=== PATIENT | male | born 1955 ===

== ENCOUNTER 2020-04-04 04:39 | Emergency (ER) | payer SELFPAY ==
[2020-04-04] MEDS ORDERED: Oxymetazoline 0.05% Nasal Spray 15 ML Bottle NAS ONE (04:49)
--- NOTE | 2020-04-04 04:52 | EDM.PDOC ---
ED HPI GENERAL MEDICAL PROBLEM - General Chief Complaint: ENT Problem Stated Complaint: NOSE BLEED Time Seen by Provider: 04/04/20 04:45 Source of Information: Reports: Patient History Limitations: Reports: No Limitations - History of Present Illness INITIAL COMMENTS - FREE TEXT/NARRATIVE: Patient is a 64-year-old male who presents today for nosebleed. Patient states that whenever he takes hollowed out and ears dry his nose typically bleeds. Patient denies any picking of his nose. Patient does not take any anticoagulation. Patient also reports that he has high blood pressure but not taken his medication in a few years. Denies any chest pain - Related Data Allergies Allergy/AdvReac Type Severity Reaction Status Date / Time No Known Allergies Allergy Verified 04/04/20 04:45 Home Meds: Home Meds Apixaban [Eliquis] 5 mg PO BID 30 Days #60 tablet 04/04/20 [Rx] dilTIAZem HCL [Dilt-XR] 120 mg PO DAILY 1 Days #30 cap.er.deg 04/04/20 [Rx] ED ROS ENT - Review of Systems Review Of Systems: Comprehensive ROS is negative, except as noted in HPI. Constitutional: Reports: No Symptoms HEENT: Reports: Nosebleed Respiratory: Reports: No Symptoms Endocrine: Reports: No Symptoms GI/Abdominal: Reports: No Symptoms : Reports: No Symptoms Musculoskeletal: Reports: No Symptoms Skin: Reports: No Symptoms Neurological: Reports: No Symptoms Psychiatric: Reports: No Symptoms Hematologic/Lymphatic: Reports: No Symptoms Immunologic: Reports: No Symptoms ED EXAM, ENT - Physical Exam Exam: See Below Exam Limited By: No Limitations General Appearance: Alert, No Apparent Distress Ears: Normal External Exam Nose: Normal Inspection Mouth/Throat: Normal Inspection Neck: Normal Inspection Respiratory/Chest: No Respiratory Distress, Lungs Clear Cardiovascular: Regular Rate, Rhythm GI/Abdominal: Normal Bowel Sounds, Soft, Non-Tender Neurological: Alert, Oriented #1 Interpretation EKG Date: 04/04/20 Time: 04:55 Rhythm: A-Fib Rate (Beats/Min): 155 ST-T: Normal #2 Interpretation EKG Date: 04/04/20 Time: 06:50 Rhythm: A-Fib Rate (Beats/Min): 91 ST-T: Normal Course - Vital Signs Last Recorded V/S: Last Vital Signs Temp 96.9 F 04/04/20 04:40 Pulse 85 11/11/20 06:51 Resp 19 04/04/20 06:51 BP 171/114 H 04/04/20 06:51 Pulse Ox 96 04/04/20 06:51 - Orders/Labs/Meds Orders: Active Orders 24 hr Category Date Time Status EKG 12 Lead [EKG Documentation Completion] [RC] STAT Care 04/04/20 05:25 Active Labs: Laboratory Tests 04/04/20 04/04/20 04/04/20 Range/Units 05:08 05:08 05:08 WBC 7.30 (4.0-11.0) K/uL RBC 4.85 (4.50-5.90) M/uL Hgb 15.4 (13.0-17.0) g/dL Hct 46.9 (38.0-50.0) % MCV 96.7 (80.0-98.0) fL MCH 31.8 (27.0-32.0) pg MCHC 32.8 (31.0-37.0) g/dL RDW Std Deviation 51.3 (28.0-62.0) fl RDW Coeff of Megha 14 (11.0-15.0) % Plt Count 200 (150-400) K/uL MPV 10.70 (7.40-12.00) fL Neut % (Auto) 73.4 (48.0-80.0) % Lymph % (Auto) 13.0 L (16.0-40.0) % [place] % (Auto) 11.2 (0.0-15.0) % Eos % (Auto) 1.9 (0.0-7.0) % Baso % (Auto) 0.5 (0.0-1.5) % Neut # (Auto) 5.4 (1.4-5.7) K/uL Lymph # (Auto) 1.0 (0.6-2.4) K/uL [place] # (Auto) 0.8 (0.0-0.8) K/uL Eos # (Auto) 0.1 (0.0-0.7) K/uL Baso # (Auto) 0.0 (0.0-0.1) K/uL Nucleated RBC % 0.0 /100WBC Nucleated RBCs # 0 K/uL INR 1.17 APTT 27.6 (18.6-31.3) SEC Sodium 140 (136-148) mmol/L Potassium 3.7 (3.5-5.1) mmol/L Chloride 103 (98-107) mmol/L Carbon Dioxide 28.0 (21.0-32.0) mmol/L BUN 13 (7.0-18.0) mg/dL Creatinine 0.9 (0.8-1.3) mg/dL Est Cr Clr Drug Dosing 92.21 mL/min Estimated GFR (MDRD) > 60.0 ml/min Glucose 120 H (74-106) mg/dL Calcium 8.6 (8.5-10.1) mg/dL Troponin I (0.000-0.056) ng/mL Ethyl Alcohol mg/dL 04/04/20 Range/Units 05:08 WBC (4.0-11.0) K/uL RBC (4.50-5.90) M/uL Hgb (13.0-17.0) g/dL Hct (38.0-50.0) % MCV (80.0-98.0) fL MCH (27.0-32.0) pg MCHC (31.0-37.0) g/dL RDW Std Deviation (28.0-62.0) fl RDW Coeff of Megha (11.0-15.0) % Plt Count (150-400) K/uL MPV (7.40-12.00) fL Neut % (Auto) (48.0-80.0) % Lymph % (Auto) (16.0-40.0) % [place] % (Auto) (0.0-15.0) % Eos % (Auto) (0.0-7.0) % Baso % (Auto) (0.0-1.5) % Neut # (Auto) (1.4-5.7) K/uL Lymph # (Auto) (0.6-2.4) K/uL [place] # (Auto) (0.0-0.8) K/uL Eos # (Auto) (0.0-0.7) K/uL Baso # (Auto) (0.0-0.1) K/uL Nucleated RBC % /100WBC Nucleated RBCs # K/uL INR APTT (18.6-31.3) SEC Sodium (136-148) mmol/L Potassium (3.5-5.1) mmol/L Chloride (98-107) mmol/L Carbon Dioxide (21.0-32.0) mmol/L BUN (7.0-18.0) mg/dL Creatinine (0.8-1.3) mg/dL Est Cr Clr Drug Dosing mL/min Estimated GFR (MDRD) ml/min Glucose (74-106) mg/dL Calcium (8.5-10.1) mg/dL Troponin I < 0.050 (0.000-0.056) ng/mL Ethyl Alcohol 3 mg/dL Meds: Medications Discontinued Medications Generic Name Dose Route Start Last Admin Trade Name Freq PRN Reason Stop Dose Admin Apixaban 5 mg 04/04/20 06:46 04/04/20 06:54 Eliquis PO 04/04/20 06:47 5 mg ONETIME ONE Administration Aspirin 325 mg 04/04/20 06:45 Aspirin PO DAILY MENG Chlordiazepoxide HCl 50 mg 04/04/20 05:36 04/04/20 05:53 Librium PO 04/04/20 05:37 50 mg ONETIME ONE Administration Diltiazem HCl 20 mg 04/04/20 05:29 04/04/20 05:55 Diltiazem IVPUSH 04/04/20 05:30 Not Given ONETIME ONE Diltiazem HCl 60 mg 04/04/20 05:30 04/04/20 05:55 Cardizem Cd PO 04/04/20 05:31 Not Given ONETIME ONE Diltiazem HCl 20 mg 04/04/20 06:14 04/04/20 06:25 Diltiazem IVPUSH 04/04/20 06:15 20 mg ONETIME ONE Administration Diltiazem HCl 60 mg 04/04/20 06:14 04/04/20 06:28 Cardizem Cd PO 04/04/20 06:15 Not Given ONETIME ONE Diltiazem HCl 60 mg 04/04/20 06:28 04/04/20 06:29 Cardizem PO 04/04/20 06:29 60 mg ONETIME ONE Administration Sodium Chloride 1,000 mls @ 999 mls/hr 04/04/20 05:36 04/04/20 05:52 Normal Saline IV 04/04/20 06:36 999 mls/hr .BOLUS ONE Administration Lorazepam 2 mg 04/04/20 05:37 04/04/20 05:53 Ativan IVPUSH 04/04/20 05:38 2 mg ONETIME ONE Administration Oxymetazoline HCl 1 ml 04/04/20 04:49 04/04/20 05:20 Afrin Original 0.05% Nasal Duncan ROZ 04/04/20 04:50 1 spray ONETIME ONE Administration Departure - Departure Time of Disposition: 06:39 Disposition: Home, Self-Care 01 Clinical Impression: Epistaxis, Acute anterior epistaxis - Discharge Information *PRESCRIPTION DRUG MONITORING PROGRAM REVIEWED*: Not Applicable *COPY OF PRESCRIPTION DRUG MONITORING REPORT IN PATIENT IGOR: Not Applicable Prescriptions: dilTIAZem HCL [Dilt-XR] 120 mg PO DAILY 1 Days #30 cap.er.deg Apixaban [Eliquis] 5 mg PO BID 30 Days #60 tablet Instructions: Atrial Fibrillation, [id number] Referrals: PCP,None [Primary Care Provider] - Forms: ED Department Discharge Additional Instructions: The following information is given to patients seen in the emergency department who are being discharged to home. This information is to outline your options for follow-up care. We provide all patients seen in our emergency department with a follow-up referral. The need for follow-up, as well as the timing and circumstances, are variable depending upon the specifics of your emergency department visit. If you don't have a primary care physician on staff, we will provide you with a referral. We always advise you to contact your personal physician following an emergency department visit to inform them of the circumstance of the visit and for follow-up with them and/or the need for any referrals to a consulting specialist. The emergency department will also refer you to a specialist when appropriate. This referral assures that you have the opportunity for follow-up care with a specialist. All of these measure are taken in an effort to provide you with optimal care, which includes your follow-up. Under all circumstances we always encourage you to contact your private physician who remains a resource for coordinating your care. When calling for follow-up care, please make the office aware that this follow-up is from your recent emergency room visit. If for any reason you are refused follow-up, please contact the [facility] Emergency Department at and asked to speak to the emergency department charge nurse. Cardiac Rehabilitation at [address] [address] You have atrial fibrillation is an arrhythmia of your heart. We are going to start you on a blood thinner called Eliquis that she will take twice a day. If you have any blood in your stool or urine or increased bleeding from anywhere else please stop the medication and return to the ER. We also started you on a medication for your heart called diltiazem please take this patient patient daily as well 1 time a day. Please follow-up with cardiology this week will call you for appointment please try to go to the order schedule clerk tomorrow for further work-up of your heart. Critical Care Note - Critical Care Note Comments: Critical Care Procedure Note Authorized and Performed by: Dr. Singer Total critical care time: Approximately Due to a high probability of clinically significant, life threatening deterioration, the patient required my highest level of preparedness to intervene emergently and I personally spent this critical care time directly and personally managing the patient. This critical care time included obtaining a history; examining the patient; pulse oximetry; ordering and review of studies; arranging urgent treatment with development of a management plan; evaluation of patient's response to treatment; frequent reassessment; and, discussions with other providers. This critical care time was performed to assess and manage the high probability of imminent, life-threatening deterioration that could result in multi-organ failure. It was exclusive of separately billable procedures and treating other patients and teaching time. Sepsis Event Note (ED) - Evaluation Sepsis Screening Result: No Definite Risk - Focused Exam Vital Signs: Vital Signs Temp Pulse Resp BP Pulse Ox 04/04/20 06:51 85 19 171/114 H 96 04/04/20 06:24 131 H 22 H 168/118 H 95 04/04/20 05:44 128 H 22 H 180/119 H 94 L 04/04/20 04:40 96.9 F 156 H 18 199/138 H 98 - My Orders Last 24 Hours: My Active Orders 04/04/20 05:25 EKG 12 Lead [EKG Documentation Completion] [RC] STAT - Assessment/Plan Last 24 Hours: My Active Orders 04/04/20 05:25 EKG 12 Lead [EKG Documentation Completion] [RC] STAT Plan: Patient is a 64-year-old male who presents today for nosebleed. Noted to be hypertensive and also tachycardic to the 140s. Patient EKG shows atrial fibrillation. There was some concern that patient possibly have had a heart because patient states he has been a heavy drinker for the past week. Patient denies any alcohol withdrawals in the past or any shaking when he does not drink. We initially gave patient Librium Ativan without much improvement. He then gave patient IV push of diltiazem followed by p.o. Patient is now rate controlled. Patient has a low chads vas score of 1 will only start aspirin. Patient has a has bled score of 1 also low risk again. Patient will be discharged to follow-up with cardiology this week for echo and further care of his atrial fibrillation. Patient will be discharged on diltiazem.
[2020-04-04] MEDS ORDERED: Diltiazem 25 MG/5 ML SDV IVPUSH ONE ×2 (05:29→06:14)
[2020-04-04] MEDS ORDERED: Diltiazem 120 MG Cap.CD PO ONE ×2 (05:30→06:14)
[2020-04-04] MEDS ORDERED: chlordiazePOXIDE 25 MG Cap PO ONE (05:36)
[2020-04-04] MEDS ORDERED: Sodium Chloride 0.9% 1,000 ML IV ONE (05:36)
[2020-04-04] MEDS ORDERED: LORazepam 2 MG/ML SDV IVPUSH ONE (05:37)
[2020-04-04 05:41] LABS: BLOOD UREA NITROGEN,BUN 13 mg/dL (7.0-18.0); CHLORIDE,CL 103 mmol/L (98-107); GLUCOSE RANDOM 120 mg/dL (74-106); POTASSIUM,K 3.7 mmol/L (3.5-5.1); SODIUM,NA 140 mmol/L (136-148)
[2020-04-04] MEDS ORDERED: Diltiazem IR 60 MG Tab PO ONE (06:28)
[2020-04-04] MEDS ORDERED: Aspirin 325 MG Tab PO SCH (06:45)
[2020-04-04] MEDS ORDERED: Apixaban 5 MG Tab PO ONE (06:46)
== END 2020-04-04 07:17 | disposition home or self-care (01) ==
LOC: MW.ED 04:39
DX: R04.0 Epistaxis (principal); Z79.01 Long term (current) use of anticoagulants
CPT/HCPCS: 36415; 80048; 80307; 84484; 85025; 85610; 85730; 93005; 96374; 96375; 99285; A9270; J2060; J3490; J7030